=== PATIENT | female | born 1960 | race Caucasian/White ===

== ENCOUNTER → 2019-03-15 | Outpatient (CLI) | payer OTHER ==
[~2019-03-15] MED LIST: Black Cohosh40 M1; CALCARB PO; CYCL10 PO; DICL75ER PO; Fish Oil PO; Hair, Skin & N1 EACH PO; IBUP400 PO; MULT50L; Percocet 5-3251 EACH PO; STRONTIUM PO
[2019-03-17 16:06] LABS: HPV 16 Negative (Negative); HPV 18 Negative (Negative); HPV OTHER HR TYPES Negative (Negative)
== END | disposition home or self-care (01) ==
LOC: LAB SHORT 15:35 → LAB 15:35
PROVIDERS: Obstetrics & Gynecology
DX: Z12.4 Encounter for screening for malignant neoplasm of cervix (principal); N85.00 Endometrial hyperplasia, unspecified
CPT/HCPCS: 87624; 88305; G0123

== ENCOUNTER 2019-04-07 12:07 | Inpatient (IN) | payer OTHER ==
[~2019-04-07] VITALS: Ht 157.5 cm; Wt 53.2 kg
[~2019-04-07 12:07] MED LIST changes: -CALCARB PO; -Hair, Skin & N1 EACH PO; -IBUP400 PO; -Percocet 5-3251 EACH PO; -STRONTIUM PO
[2019-04-11] MEDS ORDERED: CALCARB PO (10:01)
[2019-04-11] MEDS ORDERED: Hair, Skin & N1 EACH PO (10:02)
[2019-04-11] MEDS ORDERED: STRONTIUM PO (10:02)
[2019-04-13 05:13] LABS: BASOPHILS ABSOLUTE AUTO 0.03 K/mm3 (0.00-0.23); BASOPHILS PERCENT AUTO 0 % (0-2); EOSINOPHILS ABSOLUTE AUTO 0.09 K/mm3 (0.00-0.68); EOSINOPHILS PERCENT AUTO 1 % (0-6); Hematocrit 36.2 % (33.0-51.0); Hemoglobin 11.4 g/dL (11.5-16.0); IMMATURE GRAN ABSOLUTE AUTO 0.04 K/mm3 (0.00-0.10); IMMATURE GRAN PERCENT AUTO 0 % (0-1); LYMPHOCYTES ABSOLUTE AUTO 2.06 K/mm3 (0.84-5.20); LYMPHOCYTES PERCENT AUTO 15 % (21-46); MONOCYTES PERCENT AUTO 8 % (4-13); Mean Corpuscular HGB 29.8 pg (26.0-34.0); Mean Corpuscular HGB Conc 31.5 g/dL (31.5-36.5); Mean Corpuscular Volume 95 fL (80-100); Mean Platelet Volume 11.2 fL (9.1-12.4); NEUTROPHILS ABSOLUTE AUTO 10.82 K/mm3 (1.96-9.15); NEUTROPHILS PERCENT AUTO 77 % (41-73); Platelet Count 235 K/mm3 (150-400); RDW Coefficient Variation 12.7 % (11.7-14.2); Red Blood Cell Count 3.83 M/mm3 (3.80-5.20); White Blood Cell Count 14.14 K/mm3 (4.00-11.30)
[2019-04-13] MEDS ORDERED: Percocet 5-3251 EACH PO (15:05)
[2019-04-13] MEDS ORDERED: IBUP400 PO (15:06)
== END 2019-04-13 15:40 | disposition home or self-care (01) | DRG 743 ==
LOC: PRE IP 04-12 07:30 → SURS 04-12 08:41 → PRE IP 04-12 09:45 → SURS 04-12 13:27
PROVIDERS: ADMIT Obstetrics & Gynecology
PROC: 0UT90ZZ Resection of Uterus, Open Approach (ICD-10-PCS; principal; 2019-04-12 09:45)
PROC: 0UB90ZZ Excision of Uterus, Open Approach (ICD-10-PCS; 2019-04-12 09:45)
DX: D25.9 Leiomyoma of uterus, unspecified (principal); N93.9 Abnormal uterine and vaginal bleeding, unspecified
CPT/HCPCS: 36415; 84703; 85025; 86850; 86900; 86901; 88307; 94762; J0690; J1100; J1885; J2250; J2370; J2405; J2704; J2710; J3010; J7120

== ENCOUNTER 2019-07-06 07:20 | Day surgery (SDC) | payer BC ==
[~2019-07-06] VITALS: Ht 157.5 cm; Wt 51.2 kg
[~2019-07-06 07:20] MED LIST changes: +CALCARB PO; +Hair, Skin & N1 EACH PO; +IBUP400 PO; +Percocet 5-3251 EACH PO; +STRONTIUM PO
== END 2019-07-06 09:17 | disposition home or self-care (01) ==
LOC: ORSCSDS 07:20
PROVIDERS: Surgery
PROC: 0DBE8ZX Excision of Large Intestine, Via Natural or Artificial Opening Endoscopic, Diagnostic (ICD-10-PCS; principal; 2019-07-06 08:30)
DX: R19.4 Change in bowel habit (principal); R19.7 Diarrhea, unspecified; Z86.010 Personal history of colon polyps; Z80.0 Family history of malignant neoplasm of digestive organs; F17.210 Nicotine dependence, cigarettes, uncomplicated
CPT/HCPCS: 88305; J2704; J7120

== ENCOUNTER 2024-05-30 11:57 | Day surgery (SDC) | payer BC ==
[~2024-05-30] VITALS: Ht 157.5 cm; Wt 57.8 kg
[~2024-05-30 11:57] MED LIST changes: +Lactated Ringer's 1,000 ML IV ONE; +propofoL 50 ML IV ONE
[2024-05-30] MEDS ORDERED: ZANAFLEX4 M9 (12:47)
[2024-05-30] MEDS ORDERED: MELO7.5 (12:47)
[2024-05-30] MEDS ORDERED: Lactated Ringer's 1,000 ML IV ONE (13:07)
[2024-05-30 14:53] VITALS: BP 114/99
== END 2024-05-30 14:51 | disposition home or self-care (01) ==
LOC: ORSCSDS 11:57
PROVIDERS: Surgery
PROC: 0DBN8ZX Excision of Sigmoid Colon, Via Natural or Artificial Opening Endoscopic, Diagnostic (ICD-10-PCS; principal; 2024-05-30 13:30)
DX: Z12.11 Encounter for screening for malignant neoplasm of colon (principal); Z86.0101 Personal history of adenomatous and serrated colon polyps; Z80.0 Family history of malignant neoplasm of digestive organs; D12.5 Benign neoplasm of sigmoid colon; Z87.891 Personal history of nicotine dependence; Z79.899 Other long term (current) drug therapy
CPT/HCPCS: 88305; J2704; J7120

== ENCOUNTER 2024-08-09 09:50 | Day surgery (SDC) | payer BC ==
[~2024-08-09] VITALS: Ht 157.5 cm; Wt 58.6 kg
[2024-08-09] VITALS (12 sets, daily range): BP systolic 111–122; BP diastolic 56–81
[~2024-08-09 09:50] MED LIST changes: +CeFAZolin Sodium 2,000 MG in NS 100 ML IV SCH; -Lactated Ringer's 1,000 ML IV ONE; +Lactated Ringer's 1,000 ML IV SCH; +MELO7.5 PO; +Tranexamic Acid 1,000 MG in NS 100 ML IV SCH; +ZANAFLEX4 M9; -propofoL 50 ML IV ONE
[2024-08-09] MEDS ORDERED: CeFAZolin Sodium 2,000 MG VIAL ONE ×2 (09:54→11:10)
[2024-08-09] MEDS ORDERED: FentaNYL Citrate 50 MCG/ML 2 ML Injection ONE ×2 (09:58→12:18)
[2024-08-09] MEDS ORDERED: Midazolam HCl 1MG / ML 2ML Vial ONE (09:58)
[2024-08-09] MEDS ORDERED: EpiNEPhrine 1 MG/1 ML 1ML Vial ONE (10:15)
--- NOTE | 2024-08-09 10:29 | NUR ---
Ambulatory in Day Surgery History, Chart, Medications and Allergies reviewed before start of procedure. Pre-Op teaching done. Pt verbalizes understanding. Patient States Post-Procedure ride home has been arranged.
--- NOTE | 2024-08-09 10:46 | NUR ---
[id number] RIGHT SHOULDER INTRASCALENE BLOCK DONE, TIMEOUT COMPLETED WITH DR ABERNATHY.
[2024-08-09] MEDS ORDERED: Rocuronium Bromide 10 MG/ML 5ML Injection IV ONE (11:06)
[2024-08-09] MEDS ORDERED: Ondansetron HCl 2 MG / ML 2ML Vial ONE (11:06)
[2024-08-09] MEDS ORDERED: Ketorolac Tromethamine 30mg Vial ONE (11:07)
[2024-08-09] MEDS ORDERED: propofoL 20 ML IV ONE (11:08)
[2024-08-09] MEDS ORDERED: Phenylephrine HCl 100 MCG/ML-NS 10MLSYR (1MG/10ML) ONE (11:09)
[2024-08-09] MEDS ORDERED: CeFAZolin Sodium 2,000 MG in NS 100 ML IV SCH (11:10)
[2024-08-09] MEDS ORDERED: Glycopyrrolate 0.2 MG/ML 5ML VIAL ONE (11:41)
[2024-08-09] MEDS ORDERED: Sugammadex Sodium 200 MG/2ML SDV (100 MG/ML) ONE (12:03)
[2024-08-09] MEDS ORDERED: OxyCODONE HCL 5 MG TAB PO PRN (12:45)
--- NOTE | 2024-08-09 14:40 | NUR ---
Patient up to Ambulate independently. Gait steady. Discharge instructions reviewed with patient. Patient verbalizes understanding. Copy given to patient to take home, WELL FRIEND. Patient States Post-Procedure ride home has been arranged. Discharged via wheelchair to private car for ride home. PT TOLERATING PO. REPORTS READY TO GO HOME. PT PPP,CIRC CHECK WNL. PT ASSISTED BY RN AND FEMALE RN TO GET DRESSED,POLAR PAC AND IMMOBILIZER IN PLACE. FRIEND AT BEDSIDE WHILE PT ASSISTED WITH DRESSING,POLAR PAC, AND IMMOBILIZER. PT/FRIEND EDUCATED ON IMMOBILIZER AND POLAR PAC. DRESSING REMAINS C/D/I.
== END 2024-08-09 14:40 | disposition home or self-care (01) ==
LOC: ORSCMMR 09:50 → ORSCSDS 10:30 → ORSCMMR 10:30
PROVIDERS: Orthopaedic Surgery Sports Medicine
PROC: 0RNJ4ZZ Release Right Shoulder Joint, Percutaneous Endoscopic Approach (ICD-10-PCS; principal; 2024-08-09 11:15)
PROC: 0LS34ZZ Reposition Right Upper Arm Tendon, Percutaneous Endoscopic Approach (ICD-10-PCS; principal; 2024-08-09 11:15)
DX: M75.101 Unspecified rotator cuff tear or rupture of right shoulder, not specified as traumatic (principal); S46.811D Strain of other muscles, fascia and tendons at shoulder and upper arm level, right arm, subsequent encounter
CPT/HCPCS: C1713; J0171; J0690; J1885; J2250; J2371; J2405; J2704; J3010; J7120